=== PATIENT | male | born 1975 | race African-American/Black ===

== ENCOUNTER 2017-09-20 11:02 | Emergency (ER) | payer SELFPAY ==
--- NOTE | 2017-09-20 16:00 | EDPHYS ---
Physician Documentation [facility] Name: Beltran Perez Age: 42 yrs Sex: Male : 1975 Arrival Date: 09/20/2017 Time: 11:14 Bed 9 Private MD: None, None ED Physician Beau Estrella HPI: 09/20 15:54 This 42 yrs old Black Male presents to ER via Wheelchair with complaints of Itching to pm1 right foot. 15:54 The patient's rash thought to be caused by possible insect or parasite per patient. pm1 Onset: The symptoms/episode began/occurred last night. Associated signs and symptoms: Pertinent positives: itching, Pertinent negatives: fever. Severity of symptoms: in the emergency department the symptoms have resolved. The patient has not experienced similar symptoms in the past. The patient has not recently seen a physician. Patient spent the night at a friends house last night that he said was dirty. He felt some insects moving around on his right foot and reported that he was able to squeeze them out of his skin. He currently does not feel them moving around. Patient soaked his foot and washed it in alcohol at home. Historical: - Allergies: 11:23 No Known Allergies; aj - Home Meds: 11:23 None [Active]; aj - PMHx: 11:23 None; aj - PSHx: 11:23 None; aj - Immunization history:: Adult Immunizations up to date. - Social history:: Smoking status: Patient/guardian denies using tobacco, Patient/guardian denies using street drugs. - Ebola Screening: : No symptoms or risks identified at this time. ROS: 15:54 Constitutional: Negative for fever, chills, and weight loss, Eyes: Negative for injury, pm1 pain, redness, and discharge, ENT: Negative for injury, pain, and discharge, Neck: Negative for injury, pain, and swelling, Cardiovascular: Negative for chest pain, palpitations, and edema, Respiratory: Negative for shortness of breath, cough, wheezing, and pleuritic chest pain, Abdomen/GI: Negative for abdominal pain, nausea, vomiting, diarrhea, and constipation, Back: Negative for injury and pain, MS/Extremity: Negative for injury and deformity. 15:54 Neuro: Negative for headache, weakness, numbness, tingling, and seizure. 15:54 Skin: Positive for of the sole of right foot, Negative for abscesses, cellulitis, laceration(s), puncture. Exam: 15:54 Constitutional: This is a well developed, well nourished patient who is awake, alert, pm1 and in no acute distress. Head/Face: Normocephalic, atraumatic. Chest/axilla: Normal chest wall appearance and motion. Nontender with no deformity. No lesions are appreciated. Cardiovascular: Regular rate and rhythm with a normal S1 and S2. No gallops, murmurs, or rubs. Normal PMI, no JVD. No pulse deficits. Respiratory: Lungs have equal breath sounds bilaterally, clear to auscultation and percussion. No rales, rhonchi or wheezes noted. No increased work of breathing, no retractions or nasal flaring. Abdomen/GI: Soft, non-tender, with normal bowel sounds. No distension or tympany. No guarding or rebound. No evidence of tenderness throughout. Back: No spinal tenderness. No costovertebral tenderness. Full range of motion. Skin: Warm, dry with normal turgor. Normal color with no rashes, no lesions, and no evidence of cellulitis. MS/ Extremity: Pulses equal, no cyanosis. Neurovascular intact. Full, normal range of motion. 15:54 Neuro: Orientation: is normal, Motor: is normal, moves all fours, Gait: is steady, at a normal pace, without difficulty. Vital Signs: 11:23 BP 125 / 79; Pulse 91; Resp 16; Temp 97.6; Pulse Ox 100% on R/A; Weight 90.72 kg; aj Height 6 ft. 2 in. (187.96 cm); 11:23 Body Mass Index 25.68 (90.72 kg, 187.96 cm) aj MDM: 15:36 Patient medically screened. pm1 15:58 Data reviewed: vital signs. Data interpreted: Pulse oximetry: on room air is 100 %. pm1 Interpretation: normal. Counseling: I had a detailed discussion with the patient and/or guardian regarding: the historical points, exam findings, and any diagnostic results supporting the discharge/admit diagnosis, the need for outpatient follow up, to return to the emergency department if symptoms worsen or persist or if there are any questions or concerns that arise at home. Administered Medications: No medications were administered Disposition: 19:17 Co-signature as Attending Physician, Beau Estrella MD I agree with the assessment and kdr plan of care. Disposition: 09/20/17 15:59 Discharged to Home. Impression: Pruritus. - Condition is Stable. - Discharge Instructions: Scabies, Pruritus. - Prescriptions for permethrin 5 % Topical cream - apply 1 application by TOPICAL route one time leave on for 8-14 hr, then remove by thorough washing; 60 gram. - Medication Reconciliation Form, Thank You Letter form. - Follow up: Emergency Department; When: As needed; Reason: Worsening of condition. Follow up: Private Physician; When: 2 - 3 days; Reason: Recheck today's complaints, Continuance of care, Re-evaluation by your physician. - Problem is new. - Symptoms have improved. Signatures: Lakshmi Garcia RN Dorinda Jaeger RN RN aj Rittger, Kevin, MD MD kdr Cong Coe, HEAVY EQUIPMENT OPERATOR HEAVY EQUIPMENT OPERATOR pm1 Corrections: (The following items were deleted from the chart) 15:59 15:59 09/20/2017 15:59 Discharged to Home. Impression: Scabies. Condition is Stable. pm1 Forms are Medication Reconciliation Form, Thank You Letter, Antibiotic Education, Prescription Opioid Use. Follow up: Emergency Department; When: As needed; Reason: Worsening of condition. Follow up: Private Physician; When: 2 - 3 days; Reason: Recheck today's complaints, Continuance of care, Re-evaluation by your physician. Problem is new. Symptoms have improved. pm1 16:07 15:59 09/20/2017 15:59 Discharged to Home. Impression: Pruritus. Condition is Stable. sv Forms are Medication Reconciliation Form, Thank You Letter, Antibiotic Education, Prescription Opioid Use. Follow up: Emergency Department; When: As needed; Reason: Worsening of condition. Follow up: Private Physician; When: 2 - 3 days; Reason: Recheck today's complaints, Continuance of care, Re-evaluation by your physician. Problem is new. Symptoms have improved. pm1
--- NOTE | 2017-09-20 16:00 | ER ---
Nurse's Notes [facility] Name: Beltran Perez Age: 42 yrs Sex: Male : 1975 Arrival Date: 09/20/2017 Time: 11:14 Bed 9 Private MD: None, None Diagnosis: Pruritus Presentation: 09/20 11:22 Presenting complaint: Patient states: "There's a parasite in my foot since yesterday." aj Patient reports insect moving in right 3 rd toe. Small black line noted, no movement visualized. Transition of care: patient was not received from another setting of care. Onset of symptoms was September 19, 2017. Care prior to arrival: None. 11:22 Method Of Arrival: Wheelchair 11:22 Acuity: BRUNO 5 16:07 Risk Assessment: Do you want to hurt yourself or someone else? Patient reports no sv desire to harm self or others. Initial Sepsis Screen: Does the patient meet any 2 criteria? No. Patient's initial sepsis screen is negative. Does the patient have a suspected source of infection? No. Patient's initial sepsis screen is negative. Triage Assessment: 11:23 General: Appears in no apparent distress. comfortable, Behavior is calm, drowsy. Neuro: aj Level of Consciousness is alert, obeys commands, Oriented to person, place, time, situation. Respiratory: Airway is patent Respiratory effort is even, unlabored, Respiratory pattern is regular, symmetrical. Derm: Skin is intact, is healthy with good turgor, Skin is pink, warm \\T\\ dry. normal, Small black line noted to right 3 rd toe. Historical: - Allergies: 11:23 No Known Allergies; aj - Home Meds: 11:23 None [Active]; aj - PMHx: 11:23 None; aj - PSHx: 11:23 None; aj - Immunization history:: Adult Immunizations up to date. - Social history:: Smoking status: Patient/guardian denies using tobacco, Patient/guardian denies using street drugs. - Ebola Screening: : No symptoms or risks identified at this time. Screenin:06 Abuse screen: Denies threats or abuse. Denies injuries from another. Nutritional sv screening: No deficits noted. Tuberculosis screening: No symptoms or risk factors identified. Fall Risk None identified. Assessment: 15:50 General: Appears in no apparent distress. uncomfortable, Behavior is calm, cooperative, sv appropriate for age. Pain: Denies pain. Neuro: Level of Consciousness is awake, alert, obeys commands, Oriented to person, place, time, situation, Moves all extremities. Full function Gait is steady. Cardiovascular: Patient's skin is warm and dry. Respiratory: Respiratory effort is even, unlabored, Respiratory pattern is regular, symmetrical. Derm: Reports itching. Musculoskeletal: Range of motion: intact in all extremities. 16:06 Reassessment: Patient appears in no apparent distress at this time. No changes from sv previously documented assessment. Patient and/or family updated on plan of care and expected duration. Pain level reassessed. Patient is alert, oriented x 3, equal unlabored respirations, skin warm/dry/pink. Vital Signs: 11:23 BP 125 / 79; Pulse 91; Resp 16; Temp 97.6; Pulse Ox 100% on R/A; Weight 90.72 kg; aj Height 6 ft. 2 in. (187.96 cm); 11:23 Body Mass Index 25.68 (90.72 kg, 187.96 cm) aj ED Course: 11:14 Patient arrived in ED. mr 11:14 None, None is Private Physician. mr 11:23 Triage completed. aj 11:23 Arm band placed on left wrist. Patient placed in waiting room, Patient notified of wait aj time. 15:04 Cong Coe NP is PHCP. pm1 15:04 Beau Estrella MD is Attending Physician. pm1 15:47 Lakshmi Garcia RN is Primary Nurse. sv 16:06 Patient has correct armband on for positive identification. sv 16:07 No provider procedures requiring assistance completed. Patient did not have IV access sv during this emergency room visit. Administered Medications: No medications were administered Outcome: 15:59 Discharge ordered by MD. pm1 16:07 Discharged to home ambulatory. sv 16:07 Condition: stable 16:07 Discharge instructions given to patient, Instructed on discharge instructions, follow up and referral plans. medication usage, Demonstrated understanding of instructions, Prescriptions given X 1. 16:07 Patient left the ED. sv Signatures: Lakshmi Garcia RN RN sv Myers, Amanda, RN RN aj Rivera, Maria mr Cande Garcia RN RN aaCong Khan NP WIRELESS SALES EXPERT pm1 Corrections: (The following items were deleted from the chart) 15:06 14:51 Cande Garcia RN is Primary Nurse. aa5 aa5
== END 2017-09-20 16:07 | disposition home or self-care (01) ==
LOC: ER 11:02
DX: L29.9 Pruritus, unspecified (principal)
CPT/HCPCS: 99282